=== PATIENT | female | born 1945 | race Two or more races ===

== ENCOUNTER 2016-06-03 10:00 | Outpatient (RCR) | payer OTHER ==
[~2016-06-03 10:00] MED LIST: LEXAPRO10 MG ORAL; MULTIVITAMINS1 EAC2 ORAL; OMEGA 3 FISH O1 EAC1 PO; TYLENOL EXTRA500 MG ORAL; [UNRECOGNIZED DRUG - OTHER] PO; [UNRECOGNIZED DRUG - REMARK] PO; bp meds
== END 2016-06-22 | disposition home or self-care (01) ==
LOC: PTY 10:00
DX: M54.5 Low back pain (principal)
CPT/HCPCS: 97110; 97161; G0283

== ENCOUNTER 2016-07-12 15:13 | Outpatient (RCR) | payer OTHER | END 2016-07-23 | disposition home or self-care (01) | LOC: PTY 15:13 | DX: M54.5 Low back pain (principal); G89.29 Other chronic pain; Z88.6 Allergy status to analgesic agent | CPT/HCPCS: 97110; G0283 ==

== ENCOUNTER → 2016-09-22 | Outpatient (RCR) | payer OTHER | END | disposition home or self-care (01) | LOC: PTY 13:55 | DX: M54.5 Low back pain (principal) | CPT/HCPCS: 97110; G0283 ==

== ENCOUNTER 2016-09-23 10:30 | Outpatient (RCR) | payer OTHER | END 2016-10-22 | disposition home or self-care (01) | LOC: PTY 10:30 | DX: M54.5 Low back pain (principal) | CPT/HCPCS: 97110; G0283 ==